=== PATIENT | male | born 1995 | race African-American/Black ===

== ENCOUNTER 2019-03-19 08:18 | Emergency (ER) | payer OTHER ==
[2019-03-19] MEDS ORDERED: NS(*) 0.9% 1000 ML BAG 1,000 ML IV ONE (08:26)
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
[2019-03-19] MEDS ORDERED: DIPHTH/TETANUS/ACEL. PERTUSSIS IM ONE (08:30)
[2019-03-19] MEDS ORDERED: IOPAMIDOL 76% 100 ML INFUS BTL 100 ML ONE (08:49)
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
[2019-03-19 09:00] LABS: PLATELET COUNT, AUTOMATED 198 K/uL (150-450)
[2019-03-19 09:08] LABS: INR 1.03
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
[2019-03-19 10:30] VITALS: BP 159/91
[2019-03-19] MEDS ORDERED: TRAM-420 PO (10:56)
== END 2019-03-19 11:07 | disposition home or self-care (01) ==
LOC: ER 08:28
DX: S00.03XA Contusion of scalp, initial encounter (principal); V48.9XXA Unspecified car occupant injured in noncollision transport accident in traffic accident, initial encounter
CPT/HCPCS: 70450; 71045; 71260; 72125; 74177; 80320; 83605; 83690; 85025; 85610; 85730; 90715; 96360; 96361; 96372; 99284; J7030; Q9967; 82040; 82247; 82310; 82374; 82435; 82565; 82947; 84075; 84132; 84155; 84295; 84450; 84460; 84520

== ENCOUNTER → 2019-03-19 | Outpatient (CLI) | payer OTHER ==
[~2019-03-19] MED LIST: TRAM-420 PO
== END ==
LOC: AMB 07:20
PROVIDERS: ATTEND Nurse Practitioner
DX: M79.652 Pain in left thigh (principal); R51 Headache; V89.2XXA Person injured in unspecified motor-vehicle accident, traffic, initial encounter
CPT/HCPCS: A0425; A0427